=== PATIENT | female | born 2000 ===

== ENCOUNTER 2023-01-12 06:49 | Inpatient (IN) | payer SELFPAY ==
[2023-01-12] MEDS ORDERED: Oxytocin/0.9 % Sodium Chloride 0 UNIT/0 ML BAG ONE (07:32)
[2023-01-12] MEDS ORDERED: Lanolin 100% Cream 7 GM Tube TOP PRN (08:13)
[2023-01-12] MEDS ORDERED: Ibuprofen 800 MG Tab PO PRN (08:13)
[2023-01-12] MEDS ORDERED: Acetaminophen 500 MG Tab PO PRN (08:13)
[2023-01-12] MEDS ORDERED: Witch Hazel Medicated Pads 40/Jar TOP PRN (08:13)
[2023-01-12] MEDS ORDERED: Benzocaine/Menthol 20%-0.5% Spray 78 GM Cannister TOP PRN (08:13)
[2023-01-12] MEDS ORDERED: Docusate Sodium 100 MG Cap PO PRN (08:13)
[2023-01-12] MEDS ORDERED: Bisacodyl 10 MG Supp RECTAL PRN (08:13)
[2023-01-12 08:39] LABS: PH,UMBILICAL ARTERIAL 7.251 (7.18-7.38); PH,UMBILICAL VENOUS 7.295 (7.25-7.45)
[2023-01-12 09:11] LABS: BASOPHILS ABSOLUTE AUTO 0.03 K/uL (0.00-0.20); BASOPHILS PERCENT AUTO 0.2 % (0.0-1.0); EOSINOPHILS ABSOLUTE AUTO 0.03 K/uL (0.00-0.45); EOSINOPHILS PERCENT AUTO 0.2 % (0.0-6.0); HEMATOCRIT 35.5 % (37.0-47.0); HEMOGLOBIN 12.1 g/dL (12.0-16.0); IMMATURE GRAN ABSOLUTE AUTO 0.11 K/uL (0.00-0.05); IMMATURE GRAN PERCENT AUTO 0.8 % (0.0-0.4); LYMPHOCYTES ABSOLUTE AUTO 1.03 K/uL (1.00-4.80); LYMPHOCYTES PERCENT AUTO 7.3 % (24.0-44.0); MEAN CORPUSCULAR HEMOGLOBIN 27.6 pg (28.0-32.0); MEAN CORPUSCULAR HGB CONC 34.1 g/dL (32.0-36.0); MEAN CORPUSCULAR VOLUME 81.1 fL (83.0-99.0); MEAN PLATELET VOLUME 10.8 fL (9.4-12.3); MONOCYTES ABSOLUTE AUTO 0.79 K/uL (0.00-0.80); MONOCYTES PERCENT AUTO 5.6 % (0.0-8.0); NEUTROPHILS ABSOLUTE AUTO 12.11 K/uL (1.80-7.70); NEUTROPHILS PERCENT AUTO 85.9 % (41.0-71.0); PLATELET COUNT,PLT 219 K/uL (150-400); RED BLOOD CELL COUNT 4.38 M/uL (4.10-5.30)
[2023-01-12 09:23] LABS: INR 0.95 (0.86-1.11); PTT,PARTIAL THROMBOPLSTIN TIME 25.4 SEC (23.9-30.7)
[2023-01-12 09:32] LABS: A/G RATIO 0.6 (0.9-1.6); ALBUMIN 2.6 g/dL (3.4-5.0); BILIRUBIN TOTAL 0.4 mg/dL (0.2-1.0); CALCIUM 8.7 mg/dL (8.5-10.1); CARBON DIOXIDE,CO2 23.2 mmol/L (21.0-32.0); CREATININE 0.6 mg/dL (0.6-1.0); EST CRCL DRUG DOSING (CG) 119.6 mL/min; POTASSIUM,K 3.8 mmol/L (3.5-5.1); PROTEIN TOTAL,TP 6.7 g/dL (6.4-8.2)
[2023-01-12 10:53] LABS: HEPATITIS C AB# 0.02 INDEX (<0.8); HIV12 AG/AB 4TH GEN W/REFLEX < 0.1 INDEX (<1.0)
== END 2023-01-12 12:25 | disposition home or self-care (01) | DRG 807 ==
LOC: MW.OBCHECK 06:49 → MW.OB 06:49 → MW.OBCHECK 06:59 → MW.OB 07:00 → OBSVTOIN 07:46
PROVIDERS: ADMIT Obstetrics & Gynecology; ATTEND Obstetrics & Gynecology
PROC: 10E0XZZ Delivery of Products of Conception, External Approach (ICD-10-PCS; principal; 2023-01-12)
PROC: 10907ZC Drainage of Amniotic Fluid, Therapeutic from Products of Conception, Via Natural or Artificial Opening (ICD-10-PCS; 2023-01-12)
DX: O45.93 Premature separation of placenta, unspecified, third trimester (principal); O67.8 Other intrapartum hemorrhage; Z37.0 Single live birth; Z3A.36 36 weeks gestation of pregnancy
CPT/HCPCS: 36415; 59025; 59409; 80053; 82803; 85025; 85384; 85610; 85730; 86592; 86762; 86803; 86850; 86900; 86901; 87340; 87389